=== PATIENT | female | born 1985 | race Caucasian/White ===

== ENCOUNTER 2016-12-28 13:16 | Emergency (ER) | payer OTHER ==
--- NOTE | 2016-12-28 14:31 | DIAGNOSTIC IMAGING REPORT ---
PROCEDURE: XR SHOULDER 2 OR MORE VW-LEFT INDICATION: TRAUMA/INJURY TECHNIQUE: Three views. COMPARISON: None. FINDINGS: Osseous structures and joint spaces are normal. IMPRESSION: 1. Normal left shoulder.
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
--- NOTE | 2016-12-28 15:07 | ED ORDER SUMMARY ---
..... Patient: SUDEEP MONTEIRO OrderSheet [facility] VisitID: [id number] [address] [place] [address] 31y, F Registration Date/Time: 12/28/2016 ORDER SHEET Weight: 90.7 kg (stated) Allergies: Hydrocodone GENERAL ORDERS: Shoulder 2V or more Left Urgent (14:05 12/28/2016 Janak Hayes) (14:23 NHouse ER Tech1) MEDICATION ORDERS: Toradol IM 60 mg (NOW) (14:12/28/2016 Janak Hayes) (14:30 EHassan R.N.) Bactrim DS PO (Tablet 800-160 mg) 1 tab (NOW) (14:12/28/2016 Janak Hayes) (14:30 EHassan R.N.) IV FLUIDS: ORDER SHEET NOTES: [Electronically signed by Lani Armstrong R.N. (15:22 12/28/2016)] [Electronically signed by Mathew Tanner Dr. (16:10 01/02/2017)] [Electronically locked/signed by Lani Armstrong R.N. (15:22 12/28/2016)]
--- NOTE | 2016-12-28 15:07 | ED ORDER SUMMARY ---
..... Patient: SUDEEP MONTEIRO OrderSheet [facility] VisitID: [id number] [address] [place] [address] 31y, F Registration Date/Time: 12/28/2016 ORDER SHEET Weight: 90.7 kg (stated) Allergies: Hydrocodone GENERAL ORDERS: Shoulder 2V or more Left Urgent (14:05 12/28/2016 Janak Hayes) (14:23 NHouse ER Tech1) MEDICATION ORDERS: Toradol IM 60 mg (NOW) (14:12/28/2016 Janak Hayes) (14:30 EHassan R.N.) Bactrim DS PO (Tablet 800-160 mg) 1 tab (NOW) (14:12/28/2016 Janak Hayes) (14:30 EHassan R.N.) IV FLUIDS: ORDER SHEET NOTES: [Electronically signed by Lani Armstrong R.N. (15:22 12/28/2016)] [Electronically signed by Mathew Tanner Dr. (16:10 01/02/2017)] [Electronically locked/signed by Lani Armstrong R.N. (15:22 12/28/2016)]
--- NOTE | 2017-01-02 16:11 | ED MED RECONCILIATION SUMMARY ---
Patient: SUDEEP MONTEIRO Medication Reconciliation Report [facility] VisitID: [id number] [address] [place] [address] 31y, F Registration Date/Time: 12/28/2016 Weight: 90.7 kg Height/Length: 64 in. BMI: 34.3 ALLERGIES: Hydrocodone The patient's Home Medications are listed below: THE FOLLOWING MEDICATIONS NEED TO BE RECONCILED: Amoxicillin Oral The source(s) of the original Home Medication information: patient The following Medications were given to the patient in the Emergency Department: Toradol [IM] IM 60 mg, administered: 12/28/2016 2:30:00 PM Bactrim DS [PO] PO 1 tab, administered: 12/28/2016 2:30:00 PM The following Medications were prescribed to the patient: Motrin (available over the counter): take according to label instructions. -- Mathew Tanner Dr. Heat pack/warm compress over affected area as needed. Disp 2. Let it cool if hot to touch at the back of the hand. -- Mathew Tanner Dr. Acetaminophen (available over the counter): take according to label instructions. -- Mathew Tanner Dr. Bactrim DS 800 mg / 160 mg: take 1 tablet orally every 12 hours for 10 days. Substitution is permissible.(acute) -- Mathew Tanner Dr.
--- NOTE | 2017-01-02 16:11 | ED MED RECONCILIATION SUMMARY ---
Patient: SUDEEP MONTEIRO Medication Reconciliation Report [facility] VisitID: [id number] [address] [place] [address] 31y, F Registration Date/Time: 12/28/2016 Weight: 90.7 kg Height/Length: 64 in. BMI: 34.3 ALLERGIES: Hydrocodone The patient's Home Medications are listed below: THE FOLLOWING MEDICATIONS NEED TO BE RECONCILED: Amoxicillin Oral The source(s) of the original Home Medication information: patient The following Medications were given to the patient in the Emergency Department: Toradol [IM] IM 60 mg, administered: 12/28/2016 2:30:00 PM Bactrim DS [PO] PO 1 tab, administered: 12/28/2016 2:30:00 PM The following Medications were prescribed to the patient: Motrin (available over the counter): take according to label instructions. -- Mathew Tanner Dr. Heat pack/warm compress over affected area as needed. Disp 2. Let it cool if hot to touch at the back of the hand. -- Mathew Tanner Dr. Acetaminophen (available over the counter): take according to label instructions. -- Mathew Tanner Dr. Bactrim DS 800 mg / 160 mg: take 1 tablet orally every 12 hours for 10 days. Substitution is permissible.(acute) -- Mathew Tanner Dr.
--- NOTE | 2017-01-02 16:11 | ED MAR SUMMARY ---
..... Medication Administration Record [facility] [address] [place] [address] Patient: SUDEEP MONTEIRO Visit ID: [id number] 31y, F Weight: 90.7 kg Height/Length: 64 in BMI: 34.3 ALLERGIES: Hydrocodone Given 14:12/28/2016 Lani Armstrong, R.N. Medication Administered: TORADOL [IM] (KETOROLAC TROMETHAMINE), Dose: 60 mg IM. Medication Ordered: Toradol IM 60 mg (NOW). Given 14:12/28/2016 Lani Armstrong, R.N. Medication Administered: BACTRIM DS [PO] (SULFAMETHOXAZOLE-TMP DS), Dose: 1 tab Tablets PO. Medication Ordered: Bactrim DS PO (Tablet 800-160 mg) 1 tab (NOW).
--- NOTE | 2017-01-02 16:11 | ED DISCHARGE INSTRUCTIONS ---
Patient: SUDEEP MONTEIRO General Instructions [facility] VisitID: [id number] [address] [place] [address] 31y, F Registration Date/Time: 12/28/2016 12/28/2016 13:36 BP: 111/65. HR: 98. RR: 16. O2 saturation: 100%. Temp: 98.2 F. Pain level now: 5/10. Blood pressure normal. Oxygen saturation normal. Left breast mass (lateral). Bartholin's abscess (acute left). Sprain of the left rotator cuff (acute). INSTRUCTIONS Warnings: Further evaluation is necessary in order to conduct further tests (Testing on left breast mass). It is very important to follow up with a physician. GENERAL WARNINGS: Return or contact your physician immediately if your condition worsens or changes unexpectedly, if not improving as expected, or if other problems arise. Specifically return if pain, vomiting, bleeding, breathing difficulty or fever. Prescription Medications: Bactrim DS 800 mg / 160 mg: take 1 tablet orally every 12 hours for 10 days. Substitution is permissible. (acute) Heat pack/warm compress over affected area as needed. Disp 2. Let it cool if hot to touch at the back of the hand. OTC Medications: Motrin (available over the counter): take according to label instructions. Acetaminophen (available over the counter): take according to label instructions. Follow-up: Return to the emergency department in three as needed. Follow up with your doctor in three days. Reason for referral: recheck today's concerns. Summary of care provided to patient via paper. Screening today revealed the patient's blood pressure to be in the normal range. The patient should follow up with a primary care provider for blood pressure management. Understanding of the discharge instructions verbalized by patient. Follow-up with: [facility], , , [address] [place], [address] Follow up. Reason for referral: Recheck today's concerns. Please contact your insurance company for available doctors if you are unable to follow up with a doctor near [place].. Summary of care provided to patient via paper. ADDITIONAL INFORMATION BartholinS Cyst The Bartholins glands are very small glands found inside the labia (vaginal lips). The glands produce fluid to help keep the vagina moist. When the opening of a Bartholins gland becomes blocked, the gland will swell and form a cyst. A cyst feels like a firm lump within the labia, from " to 2" in size. It is usually not painful, unless it becomes infected. A small Bartholins cyst may need no treatment. Large cysts, and those that are infected (painful), need to be opened with an incision and drained. Home Care There are no restrictions needed for a small Bartholin's cyst. This should not interfere with sexual activity. Follow Up with your doctor or as advised by our staff. Get Prompt Medical Attention if any of the following occur: Increasing redness, pain or swelling of the labia Fever over 100.4F (38.0C) Breast Lump A lump was found in your breast today. Most breast lumps are not cancer. They represent normal changes in the breast tissue due to hormone variations. Some women may form lumps that are painful and tender; other lumps are painless. A common cause for a benign breast lump is Fibrocystic Breast Disease. In this condition, small cysts form and increase then decrease in size with your menstrual cycle. It is not possible to be certain of the cause of your lump without further evaluation. This could include another exam by your doctor or a recreation therapist, a mammogram, an ultrasound or possibly a biopsy. Home Care: If you are having breast pain, wear a well-fitted bra or sports bra for extra support. If you have breast pain at night, try wearing the bra during sleep. Applying a warm compress (towel soaked in warm water) may give temporary pain relief. Keep a log of whether the lump seems to be changing in size or tenderness with your period. This can help your doctor make the correct diagnosis. If your doctor suspects you have fibrocystic breast disease, try the following for the next three months: Reduce caffeine intake. Many women find that this helps. Caffeine is found in coffee, sodas, teas and chocolates. Take Vitamin E capsules (not more than 600mg per day). Follow Up with your doctor or as advised by our staff. Try to schedule the appointment for another breast exam 7-10 days after the start of your next period. Get Prompt Medical Attention if any of the following occur: Discharge from your nipple Redness or swelling of the breast Visible changes in the skin of the nipple or breast Sulfamethoxazole, Trimethoprim Oral tablet What is this medicine? SULFAMETHOXAZOLE; TRIMETHOPRIM or SMX-TMP (suhl fuh meth OK juli zohl; trye METH oh prim) is a combination of a sulfonamide antibiotic and a second antibiotic, trimethoprim. It is used to treat or prevent certain kinds of bacterial infections. It will not work for colds, flu, or other viral infections. How should I use this medicine? Take this medicine by mouth with a full glass of water. Follow the directions on the prescription label. Take your medicine at regular intervals. Do not take it more often than directed. Do not skip doses or stop your medicine early. Talk to your guard supervisor regarding the use of this medicine in children. Special care may be needed. This medicine has been used in children as young as 2 months of age. What side effects may I notice from receiving this medicine? Side effects that you should report to your doctor or health managed care coordinator as soon as possible: allergic reactions like skin rash or hives, swelling of the face, lips, or tongue breathing problems fever or chills, sore throat irregular heartbeat, chest pain joint or muscle pain pain or difficulty passing urine red pinpoint spots on skin redness, blistering, peeling or loosening of the skin, including inside the mouth unusual bleeding or bruising unusually weak or tired yellowing of the eyes or skin Side effects that usually do not require medical attention (report to your doctor or health managed care coordinator if they continue or are bothersome): diarrhea dizziness headache loss of appetite nausea, vomiting nervousness What may interact with this medicine? Do not take this medicine with any of the following medications: aminobenzoate potassium dofetilide metronidazole This medicine may also interact with the following medications: RUBEN inhibitors like benazepril, enalapril, lisinopril, and ramipril cyclosporine digoxin diuretics indomethacin medicines for diabetes methenamine methotrexate phenytoin potassium supplements pyrimethamine sulfinpyrazone tricyclic antidepressants warfarin What if I miss a dose? If you miss a dose, take it as soon as you can. If it is almost time for your next dose, take only that dose. Do not take double or extra doses. Where should I keep my medicine? Keep out of the reach of children. Store at room temperature between 20 to 25 degrees C (68 to 77 degrees F). Protect from light. Throw away any unused medicine after the expiration date. What should I tell my health care provider before I take this medicine? They need to know if you have any of these conditions: anemia asthma being treated with anticonvulsants if you frequently drink alcohol containing drinks kidney disease liver disease low level of folic acid or [id number] dehydrogenase poor nutrition or malabsorption porphyria severe allergies thyroid disorder an unusual or allergic reaction to sulfamethoxazole, trimethoprim, sulfa drugs, other medicines, foods, dyes, or preservatives or trying to get breast-feeding What should I watch for while using this medicine? Tell your doctor or health managed care coordinator if your symptoms do not improve. Drink several glasses of water a day to reduce the risk of kidney problems. Do not treat diarrhea with over the counter products. Contact your doctor if you have diarrhea that lasts more than 2 days or if it is severe and watery. This medicine can make you more sensitive to the sun. Keep out of the sun. If you cannot avoid being in the sun, wear protective clothing and use a sunscreen. Do not use sun lamps or tanning beds/booths. You have been given the following additional information: Bartholin's Cyst (No Infection) Breast Mass, Uncertain Cause Sulfamethoxazole, Trimethoprim Oral tablet (Electronically signed by Mathew Tanner Dr. 01/02/2017 16:10)
--- NOTE | 2017-01-02 16:11 | ED MAR SUMMARY ---
..... Medication Administration Record [facility] [address] [place] [address] Patient: SUDEEP MONTEIRO Visit ID: [id number] 31y, F Weight: 90.7 kg Height/Length: 64 in BMI: 34.3 ALLERGIES: Hydrocodone Given 14:12/28/2016 Lani Armstrong, R.N. Medication Administered: TORADOL [IM] (KETOROLAC TROMETHAMINE), Dose: 60 mg IM. Medication Ordered: Toradol IM 60 mg (NOW). Given 14:12/28/2016 Lani Armstrong, R.N. Medication Administered: BACTRIM DS [PO] (SULFAMETHOXAZOLE-TMP DS), Dose: 1 tab Tablets PO. Medication Ordered: Bactrim DS PO (Tablet 800-160 mg) 1 tab (NOW).
--- NOTE | 2017-01-02 16:11 | ED DISCHARGE INSTRUCTIONS ---
Patient: SUDEEP MONTEIRO General Instructions [facility] VisitID: [id number] [address] [place] [address] 31y, F Registration Date/Time: 12/28/2016 12/28/2016 13:36 BP: 111/65. HR: 98. RR: 16. O2 saturation: 100%. Temp: 98.2 F. Pain level now: 5/10. Blood pressure normal. Oxygen saturation normal. Left breast mass (lateral). Bartholin's abscess (acute left). Sprain of the left rotator cuff (acute). INSTRUCTIONS Warnings: Further evaluation is necessary in order to conduct further tests (Testing on left breast mass). It is very important to follow up with a physician. GENERAL WARNINGS: Return or contact your physician immediately if your condition worsens or changes unexpectedly, if not improving as expected, or if other problems arise. Specifically return if pain, vomiting, bleeding, breathing difficulty or fever. Prescription Medications: Bactrim DS 800 mg / 160 mg: take 1 tablet orally every 12 hours for 10 days. Substitution is permissible. (acute) Heat pack/warm compress over affected area as needed. Disp 2. Let it cool if hot to touch at the back of the hand. OTC Medications: Motrin (available over the counter): take according to label instructions. Acetaminophen (available over the counter): take according to label instructions. Follow-up: Return to the emergency department in three as needed. Follow up with your doctor in three days. Reason for referral: recheck today's concerns. Summary of care provided to patient via paper. Screening today revealed the patient's blood pressure to be in the normal range. The patient should follow up with a primary care provider for blood pressure management. Understanding of the discharge instructions verbalized by patient. Follow-up with: [facility], , , [address] [place], [id number] Follow up. Reason for referral: Recheck today's concerns. Please contact your insurance company for available doctors if you are unable to follow up with a doctor near [place].. Summary of care provided to patient via paper. ADDITIONAL INFORMATION BartholinS Cyst The Bartholins glands are very small glands found inside the labia (vaginal lips). The glands produce fluid to help keep the vagina moist. When the opening of a Bartholins gland becomes blocked, the gland will swell and form a cyst. A cyst feels like a firm lump within the labia, from " to 2" in size. It is usually not painful, unless it becomes infected. A small Bartholins cyst may need no treatment. Large cysts, and those that are infected (painful), need to be opened with an incision and drained. Home Care There are no restrictions needed for a small Bartholin's cyst. This should not interfere with sexual activity. Follow Up with your doctor or as advised by our staff. Get Prompt Medical Attention if any of the following occur: Increasing redness, pain or swelling of the labia Fever over 100.4F (38.0C) Breast Lump A lump was found in your breast today. Most breast lumps are not cancer. They represent normal changes in the breast tissue due to hormone variations. Some women may form lumps that are painful and tender; other lumps are painless. A common cause for a benign breast lump is Fibrocystic Breast Disease. In this condition, small cysts form and increase then decrease in size with your menstrual cycle. It is not possible to be certain of the cause of your lump without further evaluation. This could include another exam by your doctor or a typist, a mammogram, an ultrasound or possibly a biopsy. Home Care: If you are having breast pain, wear a well-fitted bra or sports bra for extra support. If you have breast pain at night, try wearing the bra during sleep. Applying a warm compress (towel soaked in warm water) may give temporary pain relief. Keep a log of whether the lump seems to be changing in size or tenderness with your period. This can help your doctor make the correct diagnosis. If your doctor suspects you have fibrocystic breast disease, try the following for the next three months: Reduce caffeine intake. Many women find that this helps. Caffeine is found in coffee, sodas, teas and chocolates. Take Vitamin E capsules (not more than 600mg per day). Follow Up with your doctor or as advised by our staff. Try to schedule the appointment for another breast exam 7-10 days after the start of your next period. Get Prompt Medical Attention if any of the following occur: Discharge from your nipple Redness or swelling of the breast Visible changes in the skin of the nipple or breast Sulfamethoxazole, Trimethoprim Oral tablet What is this medicine? SULFAMETHOXAZOLE; TRIMETHOPRIM or SMX-TMP (suhl fuh meth OK juli zohl; trye METH oh prim) is a combination of a sulfonamide antibiotic and a second antibiotic, trimethoprim. It is used to treat or prevent certain kinds of bacterial infections. It will not work for colds, flu, or other viral infections. How should I use this medicine? Take this medicine by mouth with a full glass of water. Follow the directions on the prescription label. Take your medicine at regular intervals. Do not take it more often than directed. Do not skip doses or stop your medicine early. Talk to your cq developer regarding the use of this medicine in children. Special care may be needed. This medicine has been used in children as young as 2 months of age. What side effects may I notice from receiving this medicine? Side effects that you should report to your doctor or health healthcare representative as soon as possible: allergic reactions like skin rash or hives, swelling of the face, lips, or tongue breathing problems fever or chills, sore throat irregular heartbeat, chest pain joint or muscle pain pain or difficulty passing urine red pinpoint spots on skin redness, blistering, peeling or loosening of the skin, including inside the mouth unusual bleeding or bruising unusually weak or tired yellowing of the eyes or skin Side effects that usually do not require medical attention (report to your doctor or health healthcare representative if they continue or are bothersome): diarrhea dizziness headache loss of appetite nausea, vomiting nervousness What may interact with this medicine? Do not take this medicine with any of the following medications: aminobenzoate potassium dofetilide metronidazole This medicine may also interact with the following medications: RUBEN inhibitors like benazepril, enalapril, lisinopril, and ramipril cyclosporine digoxin diuretics indomethacin medicines for diabetes methenamine methotrexate phenytoin potassium supplements pyrimethamine sulfinpyrazone tricyclic antidepressants warfarin What if I miss a dose? If you miss a dose, take it as soon as you can. If it is almost time for your next dose, take only that dose. Do not take double or extra doses. Where should I keep my medicine? Keep out of the reach of children. Store at room temperature between 20 to 25 degrees C (68 to 77 degrees F). Protect from light. Throw away any unused medicine after the expiration date. What should I tell my health care provider before I take this medicine? They need to know if you have any of these conditions: anemia asthma being treated with anticonvulsants if you frequently drink alcohol containing drinks kidney disease liver disease low level of folic acid or [id number] dehydrogenase poor nutrition or malabsorption porphyria severe allergies thyroid disorder an unusual or allergic reaction to sulfamethoxazole, trimethoprim, sulfa drugs, other medicines, foods, dyes, or preservatives or trying to get breast-feeding What should I watch for while using this medicine? Tell your doctor or health healthcare representative if your symptoms do not improve. Drink several glasses of water a day to reduce the risk of kidney problems. Do not treat diarrhea with over the counter products. Contact your doctor if you have diarrhea that lasts more than 2 days or if it is severe and watery. This medicine can make you more sensitive to the sun. Keep out of the sun. If you cannot avoid being in the sun, wear protective clothing and use a sunscreen. Do not use sun lamps or tanning beds/booths. You have been given the following additional information: Bartholin's Cyst (No Infection) Breast Mass, Uncertain Cause Sulfamethoxazole, Trimethoprim Oral tablet (Electronically signed by Mathew Tanner Dr. 01/02/2017 16:10)
== END 2016-12-28 15:19 | disposition home or self-care (01) ==
LOC: ED SRH 13:16
DX: N75.0 Cyst of Bartholin's gland (principal); N63 Unspecified lump in breast; S43.422A Sprain of left rotator cuff capsule, initial encounter; W18.39XA Other fall on same level, initial encounter; Y93.9 Activity, unspecified; Y92.9 Unspecified place or not applicable; Y99.9 Unspecified external cause status